=== PATIENT | female | born 1960 | race Caucasian/White ===

== ENCOUNTER → 2016-05-05 | Outpatient (CLI) | payer BC ==
[~2016-05-05] MED LIST: NO HOME MEDICATIONS
== END ==
LOC: MC.RAD 15:03
DX: Z12.31 Encounter for screening mammogram for malignant neoplasm of breast (principal)

== ENCOUNTER → 2017-07-18 | Outpatient (CLI) | payer BC | LOC: MC.RAD 11:00 | DX: Z12.31 Encounter for screening mammogram for malignant neoplasm of breast (principal) ==

== ENCOUNTER → 2018-07-19 | Outpatient (CLI) | payer BC | LOC: MC.RAD 11:28 | DX: Z12.31 Encounter for screening mammogram for malignant neoplasm of breast (principal) ==

== ENCOUNTER → 2019-07-25 | Outpatient (CLI) | payer BC | LOC: MC.RAD 17:59 | DX: Z12.31 Encounter for screening mammogram for malignant neoplasm of breast (principal) ==

== ENCOUNTER → 2020-07-25 | Outpatient (CLI) | payer BC | LOC: MC.RAD 11:22 | DX: Z12.31 Encounter for screening mammogram for malignant neoplasm of breast (principal) ==

== ENCOUNTER 2021-06-16 08:45 | Outpatient (RCR) | payer OTHER | END 2021-06-27 | disposition home or self-care (01) | LOC: PT.GENESIS | DX: M46.1 Sacroiliitis, not elsewhere classified (principal); M53.3 Sacrococcygeal disorders, not elsewhere classified ==

== ENCOUNTER 2021-07-23 11:30 | Outpatient (RCR) | payer OTHER | END 2021-07-28 13:11 | disposition still patient (30) | LOC: PT.GENESIS 11:30 | DX: M46.1 Sacroiliitis, not elsewhere classified (principal) ==

== ENCOUNTER → 2021-07-28 | Outpatient (CLI) | payer OTHER | LOC: MC.RAD 09:30 | DX: Z12.31 Encounter for screening mammogram for malignant neoplasm of breast (principal) ==

== ENCOUNTER 2021-11-13 08:20 | Day surgery (SDC) | payer OTHER ==
[~2021-11-13] VITALS: Ht 165.1 cm; Wt 99.3 kg
[2021-11-13 09:39] VITALS: BP 145/79; PULSE 62; TEMP 98.5
[2021-11-13 10:35] VITALS: BP 128/67; PULSE 70; TEMP 97
--- NOTE | 2021-11-13 10:35 | NUR ---
PT TO [facility]AY [facility] VIA [facility]ART FROM [facility], WALKED TO CHAIR, IN ROOM. CALL LIGHT IN PLACE. TAKES SNACK, NO C/O
[2021-11-13 10:50] VITALS: BP 140/79; PULSE 72
[2021-11-13 11:05] VITALS: BP 155/84; PULSE 58
--- NOTE | 2021-11-13 11:05 | NUR ---
REVIEWED DISCHARGE INST. WITH PT ON ACTIVITY, FOLLOWUP AND PRECAUTIONS WITH VERBAL UNDERSTANDING. IV D'CD INTACT. PT UP IN ROOM, UP TO B/R THEN DISCHARGED VIA W/C TO CAR WITH
[2021-11-13 11:49] VITALS: BP 102/59; PULSE 68
== END 2021-11-13 11:10 | disposition home or self-care (01) ==
LOC: SDCO 08:20
DX: Z12.11 Encounter for screening for malignant neoplasm of colon (principal); K64.1 Second degree hemorrhoids
CPT/HCPCS: J2704; J7120

== ENCOUNTER → 2023-08-22 | Outpatient (CLI) | payer MEDICARE, OTHER | LOC: MC.RAD 09:06 | DX: Z12.31 Encounter for screening mammogram for malignant neoplasm of breast (principal) ==